=== PATIENT | male | born 1940 | race Caucasian/White ===

== ENCOUNTER 2016-06-16 05:59 | Observation (INO) | payer MEDICARE, OTHER ==
[~2016-06-16] VITALS: Ht 170.2 cm; Wt 88.5 kg
[~2016-06-16 05:59] MED LIST: ARAVA10 MG PO; ASPIRIN81 MG PO; HCTZ25 MG PO; HYDROCODONE-APA1 TAB PO; TERAZOSIN HCL2 MG PO; TRANDATE200 MG PO; ULTRAM50 MG PO; ZANTAC150 MG PO; ZESTRIL40 MG PO
[2016-06-16 06:58] LABS: BASOPHILS 0.4 % (0.0-2.0); EOSINOPHILS 2.3 % (0-7); HEMATOCRIT 36.5 % (42.0-54.0); IMMATURE GRANULOCYTES 0.2 % (0-5); LYMPHOCYTES 6.3 % (15-50); MCH 31.9 pg (26.0-34.0); MCHC 32.9 g/dL (31.0-37.0); MCV 97.1 fL (80.0-100.0); MEAN PLATELET VOLUME 10.6 fL (7.4-10.4); MONOCYTES 9.2 % (2-11); NEUTROPHILS 81.6 % (40-80); PLATELET COUNT 180 10x3/uL (130-400); RBC 3.76 10x6/uL (4.20-6.10); RDW 13.7 % (11.5-14.5); WBC 9.9 10x3/uL (4.8-10.8)
[2016-06-16 07:19] LABS: ALBUMIN 3.5 g/dL (3.4-5.0); ANION GAP 12.3 mmol/L (8-16); BILIRUBIN - TOTAL 0.6 mg/dL (0.2-1.3); CALCIUM 8.8 mg/dL (8.5-10.1); CARBON DIOXIDE 23.8 mmol/L (21.0-32.0); CREATININE - SERUM 1.4 mg/dL (0.6-1.3); MAGNESIUM - SERUM 1.9 mg/dL (1.8-2.4); POTASSIUM - SERUM 4.1 mmol/L (3.5-5.1); PROTEIN - SERUM 6.6 g/dL (6.4-8.2)
[2016-06-16] MEDS ORDERED: NORVASC5 MG PO (09:58)
[2016-06-16 10:10] LABS: APPEARANCE HAZY (CLEAR); BILIRUBIN NEGATIVE (NEGATIVE); COLOR YELLOW (YELLOW); GLUCOSE NEGATIVE (NEGATIVE); KETONE NEGATIVE (NEGATIVE); LEUKOCYTE ESTERASE NEGATIVE (NEGATIVE); NITRITE NEGATIVE (NEGATIVE); PROTEIN NEGATIVE (NEGATIVE); UROBILINOGEN NORMAL (NORMAL)
--- NOTE | 2016-06-16 10:30 | NUR ---
TO ROOM 2224 FROM ER.PT WITHOUT DISTRESS.ASSESSMENT PER ADMIT PACK.ORIENTATION TO ROOM.CALL LIGHT IN REACH
[2016-06-16 12:21] VITALS: BP 101/60
[2016-06-16 12:32] VITALS: BP 120/66; BMI 30.6
--- NOTE | 2016-06-16 13:00 | NUR ---
IV RESITED TO LEFT FOREARMX1 STICK USING ASEPTIC TECH, 20G.PT TOLERATED WELL
--- NOTE | 2016-06-16 15:35 | NUR ---
HAS AMBULATED ALL DAYS IN HALLS.HE DENIES PAIN.MONITOR FOR NEEDS
[2016-06-16 16:39] VITALS: BP 94/61
--- NOTE | 2016-06-16 19:47 | NUR ---
REMAINS WITHOUT NEEDS,WITHOUT DISTRESS.CONT PLAN OF CARE
--- NOTE | 2016-06-16 20:30 | NUR ---
PATIENT UP AMBULATING IN PRETTY. NO SIGNS OF DISTRESS NOTED. DENIES ANY NEEDS AT THIS TIME. SCHEDULED MEDS GIVEN. ASSESSMENT COMPLETED. CALL LIGHT WITHIN REACH.
[2016-06-16 22:13] VITALS: BP 137/50
[2016-06-16 22:40] VITALS: BP 137/50
[2016-06-17] VITALS: BP 135/64
--- NOTE | 2016-06-17 02:05 | NUR ---
RESTING WITH EYES CLOSED, RESP WITH EASE, NO ACUTE DISTRESS NOTED, FALL PRECAUTIONS IN PLACE, CL IN REACH
[2016-06-17 04:00] VITALS: BP 120/69
--- NOTE | 2016-06-17 07:00 | NUR ---
REPORT RECIEVED ASSUMED CARE. PATIENT IN BED WITH IV INTACT. NO COMPLAINTS AT THIS TIME. CALL LIGHT WITHIN REACH.
[2016-06-17 07:27] LABS: BASOPHILS 0.3 % (0.0-2.0); EOSINOPHILS 3.4 % (0-7); HEMATOCRIT 33.9 % (42.0-54.0); HEMOGLOBIN 10.9 g/dL (13.5-17.5); IMMATURE GRANULOCYTES 0.2 % (0-5); LYMPHOCYTES 16.8 % (15-50); MCHC 32.2 g/dL (31.0-37.0); MEAN PLATELET VOLUME 10.2 fL (7.4-10.4); MONOCYTES 12.6 % (2-11); NEUTROPHILS 66.7 % (40-80); PLATELET COUNT 203 10x3/uL (130-400); RBC 3.41 10x6/uL (4.20-6.10); RDW 13.9 % (11.5-14.5)
[2016-06-17 07:31] LABS: MCV 99.4 fL (80.0-100.0)
[2016-06-17 07:39] LABS: ANION GAP 10.6 mmol/L (8-16); CALCIUM 8.3 mg/dL (8.5-10.1); CARBON DIOXIDE 25.1 mmol/L (21.0-32.0); CREATININE - SERUM 1.1 mg/dL (0.6-1.3); POTASSIUM - SERUM 3.7 mmol/L (3.5-5.1)
[2016-06-17 09:32] VITALS: BP 145/84
--- NOTE | 2016-06-17 13:00 | NUR ---
PATIENT UP AMBULATING IN HALLWAY. NO PROBLEMS AT THIS TIME. CALL LIGHT WITHIN REACH.
[2016-06-17 13:26] VITALS: Ht 170.2 cm; Wt 88.5 kg
--- NOTE | 2016-06-17 15:00 | NUR ---
PATIENT IN BED RESTING QUIETLY AT THIS TIME. IV INTACT. CALL LIGHT WITHIN REACH.
--- NOTE | 2016-06-17 17:34 | NUR ---
PATIENT RECIEVED DISCHARGE INSTRUCTIONS. VERBALIZED UNDERSTANDING. NO QUESTIONS AT THIS TIME. IV REMOVED WITH CATH TIP INTACT. CALL LIGHT WITHIN REACH.
--- NOTE | 2016-07-07 13:21 | DS ---
PATIENT:SANJIV FERNÁNDEZ :44 MEDICAL RECORD: [id number] DISCHARGE SUMMARY ADMISSION DATE: 06/16/16 DISCHARGE DATE: 06/17/16 DATE OF ADMISSION: 06/16/2016 DATE OF DISCHARGE: 06/17/2016 ADMISSION DIAGNOSES: 1. Partial small-bowel obstruction. 2. Hypertension. 3. Benign prostatic hypertrophy. DISCHARGE DIAGNOSES: 1. Partial small-bowel obstruction. 2. Hypertension. 3. Benign prostatic hypertrophy. PROCEDURES: None. CONSULTATIONS: None. REPORT OF HOSPITALIZATION: The patient was admitted to the hospital through the ER with CT scan findings consistent with a mild partial small-bowel obstruction. The patient was kept n.p.o. with an NG tube in place and by the following morning, he was having flatus and had some bowel movements. His NG tube was removed. He was started on a diet, which he tolerated well and that evening, he was discharged home. DISCHARGE INSTRUCTIONS: He will return to clinic or call if any questions or concerns, fevers, chills, nausea, vomiting or worsening abdominal pain. ACTIVITIES: As tolerated. FOLLOWUP: PRN. DISCHARGE MEDICATIONS: Resume home medications. TRANSINT:[id number] Voice Confirmation ID: [id number] DOCUMENT ID: [id number] KARMEN FLORENTINO MD at 1321 CC: [id number] DICTATION DATE: 07/04/16 1546 WILDLIFE PROTECTOR: 07/05/16 0321 DIS IN 06/17/16 [place] [id number]
== END 2016-06-17 17:36 | disposition home or self-care (01) ==
LOC: D.ER 05:59 → OBSVTIME 08:34 → D.MS 08:34 → D.ER 09:12 → OBSVTIME 09:12 → D.MS 09:12
PROVIDERS: Emergency Medicine; ADMIT Surgery
DX: K56.60 Unspecified intestinal obstruction (principal); I10 Essential (primary) hypertension; J43.9 Emphysema, unspecified

== ENCOUNTER → 2018-10-09 10:03 | Outpatient (CLI) | payer MEDICARE, OTHER ==
[2016-06-17 13:26] VITALS: BMI 30.5
[~2018-10-09 10:03] MED LIST changes: +NORVASC5 MG PO
== END | disposition home or self-care (01) ==
LOC: D.CT 10:03
PROVIDERS: ATTEND Family Medicine
DX: C64.1 Malignant neoplasm of right kidney, except renal pelvis (principal)